=== PATIENT | male | born 1970 ===

== ENCOUNTER 2016-11-16 10:12 | Emergency (ER) | payer OTHER ==
[2016-11-16 10:34] VITALS: BP 123/75; PULSE 67; RESP 16; TEMP 97.8; O2SAT 100
[2016-11-16] MEDS: TDAP Vaccine 0.5 mL Syr IM ONE (11:12)
--- NOTE | 2016-11-16 11:30 | ED PDOC ---
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 Pt states he had his hands and around wrapped around the suspect when they fell forward. Pt reports left hand pain, 4-5 fingers and metacarpals. Unknown tetanus. Past Medical History Reviewed: Historical Data, Nursing Documentation, Vital Signs Vital Signs: Last Vital Signs Temp 97.8 F 11/16/16 10:27 Pulse 67 11/16/16 10:27 Resp 16 11/16/16 10:27 BP 123/75 11/16/16 10:27 Pulse Ox 100 11/16/16 10:27 - Medical History PMH: No Chronic Diseases - Surgical History Surgical History: No Surg Hx - Family History Family History: States: Unknown Family Hx - Living Arrangements Living Arrangements: With Family - Social History Current smoker - smoking cessation education provided: No - Immunization History Hx Tetanus Toxoid Vaccination: No Hx Influenza Vaccination: No Hx Pneumococcal Vaccination: No - Home Medications Home Medications: Ambulatory Orders Medication Instructions Recorded Chlorzoxazone [Lorzone] 750 mg PO BID PRN #10 tablet 11/16/16 - Allergies Allergies/Adverse Reactions: Allergies Allergy/AdvReac Type Severity Reaction Status Date / Time No Known Allergies Allergy Verified 11/16/16 10:27 Review of Systems ROS Statement: Except As Marked, All Systems Reviewed And Found Negative Musculoskeletal: Positive for: Hand Pain (Left ) Skin: Positive for: Other Physical Exam - Reviewed Nursing Documentation Reviewed: Yes Vital Signs Reviewed: Yes - Physical Exam Appears: Positive for: Well, Non-toxic, No Acute Distress Head Exam: Positive for: ATRAUMATIC, NORMAL INSPECTION, NORMOCEPHALIC Skin: Positive for: Warm. Negative for: Normal Color ((+) abrasion of the 4th and 5th posterior PIP) Eye Exam: Positive for: Normal appearance ENT: Positive for: Normal ENT Inspection Neck: Positive for: Normal, Painless ROM Respiratory: Negative for: Accessory Muscle Use Back: Positive for: Normal Inspection Extremity: Positive for: Normal ROM, Tenderness (4th proximal phalange, 4 and 5 metacarpal ) Neurologic/Psych: Positive for: Alert, Oriented - ECG O2 Sat by Pulse Oximetry: 100 Medical Decision Making Medical Decision Making: ?FB on hand x-ray. Wound cleaned well. (+) small FB, rock removed and wound irrigated. Antibiotic ointment and dressing applied. Disposition - Clinical Impression Clinical Impression: Injury of hand, Back pain, Abrasion, Tetanus toxoid vaccination administered at current visit, Skin foreign body - Patient ED Disposition Is Patient to be Admitted: No Counseled Patient/Family Regarding: Diagnosis, Need For Followup - Disposition Referrals: [facility] [Outside] Disposition: Routine/Home Disposition Time: 13:01 Condition: STABLE Prescriptions: Chlorzoxazone [Lorzone] 750 mg PO BID PRN #10 tablet PRN Reason: Muscle pain/tightness Instructions: Back Pain (ED), Abrasion (ED) Forms: [facility] ED School/Work Excuse
--- NOTE | 2016-11-16 13:03 | RAD ---
PROCEDURE: Left Hand Radiographs. HISTORY: pain s/p fall COMPARISON: None. FINDINGS: BONES: No evidence of acute fracture. JOINTS: Normal. No osteoarthritic changes. SOFT TISSUES: Small calcifications seen in the soft tissue adjacent to the distal proximal phalanx of the 4th finger. OTHER FINDINGS: None. IMPRESSION: No evidence of acute fracture or dislocation.
== END 2016-11-16 13:20 | disposition home or self-care (01) ==
LOC: H.ER 10:12
DX: M79.642 Pain in left hand (principal); T14.8 Other injury of unspecified body region; M54.9 Dorsalgia, unspecified; W19.XXXA Unspecified fall, initial encounter; Y99.0 Civilian activity done for income or pay